=== PATIENT | female | born 1985 | race Caucasian/White ===

== ENCOUNTER 2022-02-11 15:52 | Outpatient (CLI) | payer BC, SELFPAY ==
[2022-02-11 16:57] LABS: BUN 14 mg/dL (7-18); Glucose 89 mg/dL (74-106)
[2022-02-11 16:58] LABS: ALB/GLOB Ratio 1.1 RATIO (0.9-2.4); AST(SGOT) 17 U/L (15-37); Alanine Aminotransfer ALT/SGPT 31 U/L (13-56); Alkaline Phosphatase 44 U/L (45-117); Anion Gap 7 (5-15); BUN/Creat Ratio 17.5 RATIO (10-20); Calcium,Total 8.8 mg/dL (8.5-10.1); Chloride 105 mmol/L (98-107); Cholesterol 192 mg/dL (200); EST Glomerular Filtration Rate 85 mL/min (>60); Est Glom Filt Rate - Afr Amer 103 mL/min (>60); Globulin 3.6 g/dL (2.2-4.2); High Density Lipoprotein 68 mg/dL; Protein, Total 7.6 g/dL (6.4-8.2); Sodium Level 136 mmol/L (136-145); T4 Free Direct 1.05 ng/dL (0.76-1.46); Thyroid Stim Hormone (TSH) 2.02 uIU/mL (0.358-3.74); Triglycerides 111 mg/dL; Very Low Density Lipoprotein 22 mg/dL (5-40)
== END 2022-02-11 23:59 | disposition home or self-care (01) ==
LOC: LAB 16:03
PROVIDERS: PCP Nurse Practitioner Family; Visit Provider Nurse Practitioner Family
DX: Z00.00 Encounter for general adult medical examination without abnormal findings (principal); E04.9 Nontoxic goiter, unspecified; Z13.1 Encounter for screening for diabetes mellitus
CPT/HCPCS: 36415; 80053; 80061; 84439; 84443